=== PATIENT | male | born 1960 | race Caucasian/White ===

== ENCOUNTER 2016-06-30 19:33 | Inpatient (IN) ==
[2016-06-30] MEDS ORDERED: VANCOMYCIN INJ 1,000 MG in SODIUM CHLORIDE 0.9% 250 ML IV STA (20:18)
[2016-06-30] MEDS ORDERED: methylPREDNISolone SOD SUC 125 MG/2 ML VIAL IV STA (20:18)
[2016-06-30] MEDS ORDERED: KETOROLAC 30 MG/1 ML VIAL IV STA (20:18)
--- NOTE | 2016-06-30 20:24 | Emergency Department Note ---
Arrival - Arrival Chief Complaint: Abscess Stated Complaint: abcess on buttocks ED Nursing Triage Note: pt has a perirectal abscess and was told by dr bergman to come to the er for admission to be put on iv antibiotics Mode of Arrival: Ambulatory Limitations: No Limitations Source: Patient Time Seen by Provider: 06/30/16 20:18 - History of Present Illness HPI Narrative: This 56-year-old white male presents approximately 1 week post onset of painful knot of the right buttocks perirectally. During that 1 week, the patient has had the area manipulated twice, once by his and once by an ER physician. However he has had progression of right perirectal pain extending well into the right buttocks. He was seen in [facility] in an ER earlier today where he was told he had a serious abscess that would have to be opened surgically. At that time he had a CT done but no disk was sent with the patient. Currently he is in considerable discomfort and has had periods of chills and fever over the last week although he has been compliant with the clindamycin he was given to treat infection. Currently he appears uncomfortable but in no acute distress. Onset (ago): week(s) (Patient presents 1 week post onset of symptoms) Allergies/Adverse Reactions: Allergies Allergy/AdvReac Type Severity Reaction Status Date / Time No Known Allergies Allergy Unverified 06/30/16 19:43 Home Medications: Home Medications Medication Instructions Recorded Confirmed Type Clindamycin Cap [Cleocin Cap] 300 mg PO Q6HR 06/30/16 06/30/16 History Review of System - Review of System 12 point system: reviewed and no additional remarkable complaints except as stated - Review of System Constitutional: Present: as per HPI Skin: Present: as per HPI Medical,Surgical,& Family Hx - Social History Smoking Status: Unknown if ever smoked Frequency of Alcohol Use: Frequently Type of Drug Use: None Exam Physical Examination: GENERAL: Well developed, well nourished white male in no acute distress. HEENT: Normocephalic. No trauma. Moist mucous membranes. EOMI. PERRLA. ENT NML NECK: Supple. No adenopathy. CARDIAC: Regular. No murmurs. CHEST: Clear to auscultation. No respiratory distress. ABDOMEN: Soft. Nontender. Active bowel sounds. : Red, warm, hard right perirectal area extending into the right buttocks. EXTREMITIES: No trauma. Normal ROM. No pedal edema. SKIN: No diaphoresis. No rash. NEURO: Alert. Neuro intact. No focal deficits. Vital Signs: Vital Signs Temperature 98.0 F 06/30/16 20:17 Pulse Rate 84 06/30/16 22:55 Respiratory Rate 16 06/30/16 22:55 Blood Pressure 94/62 06/30/16 22:55 O2 Sat by Pulse Oximetry 96 06/30/16 22:55 Course - Reevaluation(s) Reevaluation #1: Discussed with patient the need for hospitalization for further evaluation treatment - Consultations Consultation #1: Discussed with Dr. Jensen who will admit for further evaluation treatment. Results - Labs CBC & BMP: 06/30/16 20:33 06/30/16 20:33 Labs: I have reviewed the laboratory and noted the low potassium and calcium. - Diagnostic Findings Procedure: CT Abdomen and Pelvis: image reviewed by me, report reviewed by me ( I have reviewed the CT which confirms evidence of a right perirectal abscess) Disposition Clinical Impression: Right perirectal abscess Case discussed with: patient, patient's family Condition: Guarded Time of Disposition: 23:03
[2016-06-30 20:52] LABS: Basophils % 0.4 % (0.0-0.8); Eosinophils # 0.1 10*3/uL (0.0-0.87); Eosinophils % 1.1 % (0.00-10.9); Hematocrit 36.8 VOL% (42.0-52.0); Hemoglobin 12.8 GM/DL (14.0-18.0); Immature Granulocytes % 0.4 %; Immature Granulocytes Absolute 0.03 #; Lymphocytes # 1.5 10*3/uL (1.4-4.0); Lymphocytes % 18.5 % (21.2-54.2); Mean Corpuscular HGB Conc 34.8 GM/DL (32-36); Mean Corpuscular Hemoglobin 31 PG (27-34); Mean Corpuscular Volume 89.8 FL (87-102); Mean Platelet Volume 9.5 FL (9.6-12.0); Monocytes # 0.4 10*3/uL (0.11-0.8); Monocytes % 5.1 % (1.7-12.7); Neutrophils # 5.8 10*3/uL (1.4-7.4); Neutrophils % 74.5 % (38.7-73.9); Platelet Count 167 T/CUMM (130-400); Red Cell Distribution Width 12.7 % (9.3-17.3); White Blood Count 7.8 T/CUMM (4-12)
[2016-06-30 21:10] LABS: INR 1.1; PT Patient Result 11.3 SECS; Partial Thromboplastin Time 32.4 SECS (0-40)
[2016-06-30 21:19] LABS: Albumin 2.7 G/DL (3.4-5.0); Bilirubin,Total 1.2 MG/DL (0.2-1.0); Calcium 7.7 MG/DL (8.5-10.1); Osmolality,Calculated 275.8 MOS/KG (273-304); Potassium 3.2 MMOL/L (3.5-5.1); Total Protein 5.9 G/DL (6.4-8.3)
[2016-06-30] MEDS ORDERED: SODIUM CHLORIDE 0.9% 100 ML IV ONE (21:54)
[2016-06-30] MEDS ORDERED: methylPREDNISolone SOD SUC 125 MG/2 ML VIAL ONE (21:54)
[2016-06-30] MEDS ORDERED: VANCOMYCIN 1,000 MG VIAL ONE (21:54)
[2016-06-30] MEDS ORDERED: KETOROLAC 30 MG/1 ML VIAL ONE (21:54)
[2016-06-30] MEDS ORDERED: POTASSIUM BICARB EFFERVESCENT 25 MEQ TABLET PO ONE ×2 (22:16→22:20)
--- NOTE | 2016-06-30 22:51 | CT Report ---
History: Perirectal abscess Date: 06/30/2016 Study: CT abdomen and pelvis with IV contrast Comparison exam: No previous CT currently available for comparison Technique: Spiral CT sections were obtained from the lung bases to the pubic symphysis following 50 mL Omnipaque 350 IV. Total DLP measures 1753.3 mGy*cm. The CT exam was performed using one or more of the following dose reduction techniques: Automated exposure control, adjustment of the mA and/or kV according to patient size, or use of iterative reconstruction technique. CT abdomen: The partially visualized lung bases are generally clear. There is no gross pleural or pericardial effusion. There is a 10.3 mm rounded water density area in the lateral segment of the left lobe of the liver superiorly suggesting hepatic cyst. There are some tiny less than 1 cm areas in the right lobe of the liver which could represent cysts as well, but are difficult to characterize because of small size. The spleen, pancreas, adrenal glands, bile ducts, contracted gallbladder, and kidneys are unremarkable in CT appearance otherwise. There is no aortic aneurysm. The appendix is normal. There is no lymphadenopathy by short axis diameter criteria. CT pelvis: There is some focal hazy edema in the subcutaneous fat of the right buttock area dorsally and medially, extending near the right perirectal region. This is suggestive of focal edema such as that which can be seen with phlegmon. This measures approximately 36 x 18 x 42 mm at the minimum. There is no forest well encapsulated abscess. Metallic density suggesting clips from previous vasectomy are noted in the scrotum bilaterally. There is no pelvic lymphadenopathy with short axis diameter criteria. Impression: Localized soft tissue edema in the soft tissues of the right buttock extending into the right perirectal area compatible with phlegmon. A fluid filled/encapsulated abscess is not seen. No significant abnormality otherwise PROCEDURE INTERPRETED AT [facility] DEPARTMENT OF RADIOLOGY Final Report Signed by: Dr. Jaclyn New
[2016-06-30] MEDS ORDERED: HYDROmorphone 2 MG/1 ML VIAL IV PRN (23:05)
[2016-06-30] MEDS ORDERED: ONDANSETRON 4 MG/2 ML VIAL IV PRN (23:05)
[2016-07-01] MEDS: SODIUM CHLORIDE 0.9% 1,000 ML IV SCH ×3 (00:53→14:32)
[2016-07-01] MEDS: PIPERACILLIN/TAZOBACTAM 3,375 MG in SODIUM CHLORIDE 0.9% 100 ML IV SCH ×2 (00:56→09:30)
--- NOTE | 2016-07-01 07:29 | General Surg History&Physical ---
Assessment and Plan (1) Perianal abscess Status: Acute Assessment and plan: This patient will be taken to the operating room for an exam under anesthesia with incision and drainage of his perianal abscess. I discussed the risks, benefits, and alternatives of the operation with the patient, and the expected outcomes have been reviewed. The patient would like to proceed with the operation. In particular, we discussed the risk of incontinence and fistula and the need for further surgery as well as urinary retention Current Visit: Yes History of Present Illness Chief complaint: Buttock pain History of present illness: Mr. Clemons is a 56 year old male with no significant past medical or surgical history who was admitted to the hospital with worsening pain and fever on his right buttock region. He has never had any problems like this before. He denies any medical history. He had a CT scan in the ER and some lab work which was fairly unrevealing. Home Medications Medication Instructions Recorded Confirmed Type Clindamycin Cap [Cleocin Cap] 300 mg PO Q6HR 06/30/16 06/30/16 History Dextroamphetamine/Amphetamine 10 mg PO TID 07/01/16 07/01/16 History [Adderall 10 mg Tablet] Allergies Allergy/AdvReac Type Severity Reaction Status Date / Time No Known Allergies Allergy Unverified 06/30/16 19:43 Medical,Surgical,& Family Hx - Medical History Psychological: History of: ADHD - Surgical History HEENT Surgeries: Surgical HX of: Tonsilectomy & Adenoidectomy (Tonsils) - Family History Family History: Reports;: Family Cancer (mother breasts,oral), Family Hematology (brother and father , protein S and C deficiency), Family Stroke ( father) - Social History Smoking Status: Unknown if ever smoked Frequency of Alcohol Use: Frequently Type of Drug Use: None Exam - Constitutional Vitals: Period Temp Pulse Resp BP Sys/Herrera Pulse Ox Last 24 Hr 98.2 F-98.3 F 63-84 16-20 94-130/62-76 94-97 General appearance: no acute distress, over weight - Head Head exam: Present: normal inspection, normocephalic - Eye Eye exam: Present: EOMI Pupils: Present: MAME - ENT ENT exam: Present: normal exam Mouth exam: Present: normal external inspection, normal voice - Neck Neck exam: Present: normal inspection, trachea midline - Respiratory Respiratory exam: Present: clear to auscultation bilaterally. Absent: accessory muscle use, chest wall tenderness - Cardiovascular Cardiovascular exam: Present: RRR. Absent: systolic murmur, tachycardia - GI/Abdominal GI/Abdominal exam: Present: normal bowel sounds, soft. Absent: tenderness, rebound - Anus/Rectum Anus/Rectum: other (There is a large area of erythema and induration over the right buttock with a small area of drainage.) - Extremities Exam Extremities exam: Present: normal inspection, normal capillary refill - Back Exam Back exam: Present: normal inspection - Neurological Exam Neurological exam: Present: alert, oriented X3 Speech: Present: normal - Skin Skin exam: Present: normal color, warm - Constitutional Constitutional: Present: as per HPI - EENT Nose, mouth and throat: Present: as per HPI - Cardiovascular Cardiovascular: Present: as per HPI - Respiratory Respiratory: Present: as per HPI - Gastrointestinal Gastrointestinal: Present: as per HPI - Genitourinary Genitourinary: Present: as per HPI - Musculoskeletal Musculoskeletal: Present: as per HPI - Neurological Neurological: Present: as per HPI - Endocrine Endocrine: Present: as per HPI Hematologic/Lymphatic: Present: as per HPI Results - Labs CBC & BMP: 06/30/16 20:33 06/30/16 20:33 - Diagnostic Findings Procedure: CT Abdomen and Pelvis: image reviewed by me, report reviewed by me
[2016-07-01 07:37] LABS: Basophils % 0.2 % (0.0-0.8); Hematocrit 39.3 VOL% (42.0-52.0); Hemoglobin 13.5 GM/DL (14.0-18.0); Immature Granulocytes % 0.5 %; Immature Granulocytes Absolute 0.03 #; Lymphocytes # 1.1 10*3/uL (1.4-4.0); Lymphocytes % 18.9 % (21.2-54.2); Mean Corpuscular HGB Conc 34.4 GM/DL (32-36); Mean Corpuscular Hemoglobin 31 PG (27-34); Mean Corpuscular Volume 90.3 FL (87-102); Mean Platelet Volume 9.4 FL (9.6-12.0); Monocytes # 0.1 10*3/uL (0.11-0.8); Monocytes % 1.4 % (1.7-12.7); Neutrophils # 4.5 10*3/uL (1.4-7.4); Platelet Count 161 T/CUMM (130-400); Red Blood Count 4.35 MC/CUMM (3.8-5.5); Red Cell Distribution Width 12.9 % (9.3-17.3); White Blood Count 5.7 T/CUMM (4-12)
[2016-07-01 08:01] LABS: Calcium 8.1 MG/DL (8.5-10.1); Osmolality,Calculated 285.3 MOS/KG (273-304); Potassium 4.2 MMOL/L (3.5-5.1)
[2016-07-01 08:07] LABS: Band Neutrophils 2 % (0-10); Lymphocytes 11 % (20-55); Segmented Neutrophils 85 % (50-85); Total Cells Counted 100
[2016-07-01 08:08] LABS: Hypochromasia Slight; Platelet Estimate Adequate
[2016-07-01] MEDS ORDERED: KETOROLAC 30 MG/1 ML VIAL ONE (12:10)
[2016-07-01] MEDS ORDERED: ONDANSETRON 4 MG/2 ML VIAL ONE ×2 (12:10→13:20)
[2016-07-01] MEDS ORDERED: PROPOFOL 200 MG/20 ML VIAL IV ONE (12:10)
[2016-07-01] MEDS ORDERED: LIDOCAINE 2% 5 ML VIAL ONE (12:10)
--- NOTE | 2016-07-01 12:44 | Operative Note ---
Date of procedure: 07/01/16 Pre-op diagnosis: Perirectal abscess Post-op diagnosis: same Procedure: Preoperative diagnosis Perirectal abscess Postoperative diagnosis Same Procedures performed 1. Rectal exam under anesthesia 2. Incision and drainage of perirectal abscess Findings A large perirectal abscess was present that required a counterincision and Poland drain placement to keep the tract open and allowed to drain adequately. There is no evidence of fistulization to the rectum. Complications None apparent Specimen Cultures Anesthesia General LMA Blood loss 10 mL Indications Recurrent perirectal abscess Description of procedure The patient was taken to the operating room and transferred to the operating table in the supine position. Pressure points were padded and SCDs were placed lower extremities. The patient was placed in lithotomy position and the perineum was prepped with Betadine and draped sterilely. Preoperative antibiotics were administered, and a timeout was performed. Rectal exam under anesthesia revealed no evidence of communication with the rectum. The abscess was drained externally through to counterincisions because the abscess cavity is so large. A large amount of pus was drained and cultures were sent to the lab. The cavity was irrigated and the Andrew drain was placed and sewn to itself with 3-0 nylon suture. The wound is packed with iodoform packing gauze after it was irrigated and dressed with a sterile dressing. Postoperative plan Continue wound care and antibiotics Follow-up cultures Implants: andrew drain Anesthesia: GURPREET Surgeon / Physician: Manny Jensen Estimated blood loss: minimal Specimens: other (cultures) Condition: stable Disposition: PACU Results - Labs CBC & BMP: 07/01/16 07:18 07/01/16 07:18 Discharge Plan - Discharge Medications No Action Clindamycin Cap [Cleocin Cap] 300 mg PO Q6HR Dextroamphetamine/Amphetamine [Adderall 10 mg Tablet] 10 mg PO TID - Follow Up or Referral - Forms/Instructions
--- NOTE | 2016-07-01 13:05 | Anesthesia Post-Op ---
Anesthesia Post OP - Post Ansesthetic Evaluation Patient seen in post op: Yes Resp: within normal limits CV: within normal limits Mental: within normal limits Temp: within normal limits [id number]: within normal limits Nausea and Vomiting: within normal limits Pain: within normal limits
[2016-07-01] MEDS ORDERED: MIDAZOLAM 2 MG/2 ML VIAL ONE (13:07)
[2016-07-01] MEDS ORDERED: fentaNYL 100 MCG/2 ML VIAL ONE (13:07)
[2016-07-01] MEDS ORDERED: SEVOFLURANE 1 UNIT/15 MINUTE INH ONE (13:07)
[2016-07-01] MEDS ORDERED: ACETAMINOPHEN 1,000 MG/100 ML VIAL IV ONE (13:07)
[2016-07-01] MEDS ORDERED: ONDANSETRON 4 MG/2 ML VIAL IV PRN (13:19)
[2016-07-01] MEDS ORDERED: HYDROmorphone 2 MG/1 ML VIAL ONE (13:20)
[2016-07-01] MEDS: HYDROmorphone 2 MG/1 ML VIAL IV PRN ×2 (13:21→13:32)
[2016-07-01] MEDS ORDERED: LACTATED RINGERS 1,000 ML IV SCH (13:30)
[2016-07-01] MEDS: VANCOMYCIN INJ 2,000 MG in SODIUM CHLORIDE 0.9% 500 ML IV SCH ×2 (14:30→21:10)
[2016-07-02] MEDS: PIPERACILLIN/TAZOBACTAM 3,375 MG in SODIUM CHLORIDE 0.9% 100 ML IV SCH ×5 (00:56→16:22)
[2016-07-02] MEDS: SODIUM CHLORIDE 0.9% 1,000 ML IV SCH ×3 (01:02→07:30)
[2016-07-02] MEDS: HYDROmorphone 2 MG/1 ML VIAL IV PRN ×2 (10:01→20:34)
[2016-07-02] MEDS: VANCOMYCIN INJ 2,000 MG in SODIUM CHLORIDE 0.9% 500 ML IV SCH ×2 (13:01→21:00)
--- NOTE | 2016-07-02 13:38 | Event Note ---
General Surgery Progress Note Chief complaint This patient is a 56-year-old man admitted to the hospital with a large right- sided gluteal abscess treated with incision and drainage and Carla drain placement on 07/01/2016 Interval history The patient is doing well. He has some significant pain with dressing changes today. No fevers. Tolerating a diet. Cultures have grown gram-negative rods and gram-positive cocci Physical exam Patient is afebrile with normal vital signs The right buttock wound has some significant induration and erythema that still present and is relatively unchanged compared to yesterday but there is no further purulent drainage expressed when pushing on the wound Labs None new Imaging None new Assessment and plan Continue antibiotics and wound care Follow cultures Repeat labs tomorrow and keep 1 more day for pain control and wound care.
[2016-07-03] MEDS: PIPERACILLIN/TAZOBACTAM 3,375 MG in SODIUM CHLORIDE 0.9% 100 ML IV SCH ×2 (00:58→07:54)
[2016-07-03 02:07] LABS: Basophils # 0.1 10*3/uL (0.0-0.2); Eosinophils % 0.8 % (0.00-10.9); Hematocrit 35.6 VOL% (42.0-52.0); Hemoglobin 11.9 GM/DL (14.0-18.0); Immature Granulocytes % 0.4 %; Immature Granulocytes Absolute 0.02 #; Lymphocytes # 1.9 10*3/uL (1.4-4.0); Lymphocytes % 37.3 % (21.2-54.2); Mean Corpuscular HGB Conc 33.4 GM/DL (32-36); Mean Corpuscular Hemoglobin 31 PG (27-34); Mean Platelet Volume 9.6 FL (9.6-12.0); Monocytes # 0.4 10*3/uL (0.11-0.8); Monocytes % 7.7 % (1.7-12.7); Neutrophils # 2.7 10*3/uL (1.4-7.4); Neutrophils % 52.8 % (38.7-73.9); Platelet Count 171 T/CUMM (130-400); Red Blood Count 3.87 MC/CUMM (3.8-5.5); Red Cell Distribution Width 13.2 % (9.3-17.3); White Blood Count 5.1 T/CUMM (4-12)
[2016-07-03 02:33] LABS: Calcium 7.6 MG/DL (8.5-10.1); Magnesium 2.2 MG/DL (1.8-2.4); Potassium 4.2 MMOL/L (3.5-5.1)
[2016-07-03] MEDS: HYDROmorphone 2 MG/1 ML VIAL IV PRN (05:18)
--- NOTE | 2016-07-03 11:17 | Discharge Summary ---
Hospital Course - Hospital Course Hospital Course: Patient was admitted for perirectal abscess for which she underwent irrigation debridement in the operating room. Cultures at the time of discharge were growing gram-negative rods and gram-positive cocci with final results pending. Patient tolerated bedside dressing changes without difficulty and requiring only oral pain medications. He reports having a family member who can assist him with these dressing changes. He was discharged home in good condition on ciprofloxacin and Bactrim. We will follow-up on the cultures. No complications to note. Diagnosis - Discharge Diagnosis (1) Perianal abscess Status: Acute Specialty Discharge - Follow Up or Referrals Follow up with: Manny Jensen MD [Physician] - 07/10/16 1:30 pm Discharge Plan - Discharge Data Disposition: Disch To Home/Self Care Condition at Discharge: Stable Discharge Diet: advance to your usual diet, high fiber diet Activity: resume usual activities as tolerated Hygiene: may shower, other (Sitz baths after bowel movement) Driving: other (No driving while taking narcotics) Contact your physician if you experience:: fever over 101, Difficulty voiding, Redness or swelling, Nausea/Vomiting, Shortness of breath, Bleeding, pain uncontrolled by pain medications Wound / Dressing Care Instructions: Change packing daily after showering. - Discharge Medications New Ciprofloxacin Tab [Cipro Tab] 500 mg PO BID #14 tablet HYDROcodone/ACETAMIN 7.5-325 [Ebony 7.5-325] 1 tablet PO Q6H PRN #30 tablet PRN Reason: Pain Moderate To Severe (4-10) Sulfameth/Trimeth 800-160 Tab [Bactrim DS Tab] 1 tablet PO BID #14 tablet Continue Dextroamphetamine/Amphetamine [Adderall 10 mg Tablet] 10 mg PO TID Discontinued Clindamycin Cap [Cleocin Cap] 300 mg PO Q6HR - Follow Up or Referral Follow Up: Manny Jensen MD [Physician] - 07/10/16 1:30 pm - Forms/Instructions Instructions: Abscess (GEN), Incision and Drainage (DC), Sitz Bath (DC) Exam - Constitutional Vitals: Period Temp Pulse Resp BP Sys/Herrera Pulse Ox Last 24 Hr 97.5 F-98.9 F 67-80 16-20 111-121/59-77 93-98 General appearance: no acute distress - Respiratory Respiratory exam: Present: clear to auscultation bilaterally - GI/Abdominal GI/Abdominal exam: Present: normal bowel sounds, soft. Absent: tenderness - Extremities Exam Extremities exam: Absent: calf tenderness, edema - Neurological Exam Neurological exam: Present: alert, oriented X3 Discharge Results Procedures and tests throughout hospitalization: Pending Orders 07/01/16 Abscess Culture Routine Anaerobic Culture Routine Perianal abscess I&D Cultures growing G (+) cocci and G(-) rods Labs on day of discharge: Labs from last 24 hours 07/03/16 07/03/16 07/02/16 01:29 01:29 19:56 WBC 5.1 RBC 3.87 Hgb 11.9 L Hct 35.6 L MCV 92.0 MCH 31 MCHC 33.4 RDW 13.2 Plt Count 171 MPV 9.6 Neut % (Auto) 52.8 Lymph % (Auto) 37.3 Snyder % (Auto) 7.7 Eos % (Auto) 0.8 Baso % (Auto) 1.0 H Neut # (Auto) 2.7 Lymph # (Auto) 1.9 Snyder # (Auto) 0.4 Eos # (Auto) 0.0 Baso # (Auto) 0.1 Immature Gran % 0.4 Nucleated RBC % 0.0 Immature Gran # 0.02 Nucleated RBCs # 0.00 Sodium 143 Potassium 4.2 Chloride 108 H Carbon Dioxide 29 Anion Gap 10.2 BUN 8 Creatinine 0.80 GFR Calculation 126 BUN/Creatinine Ratio 10.00 Glucose 91 Calculated Osmolality 282.0 Calcium 7.6 L Magnesium 2.2 Vancomycin Trough 19.3 Preliminary micro results at discharge 07/01/16 Unknown Abscess Culture - Preliminary Buttock - Right Gram Negative Rods Gram Positive Cocci - Imaging and Cardiology Procedure: CT Abdomen and Pelvis: image reviewed by me, report reviewed by me DS: Provider Date of admission: 06/30/16 23:04 Primary care physician: . No PCP Attending physician on admission: Manny Jensen MD Consults: 07/01/16 07:09 Consult to Anesthesiology [CONS] Routine Consulting Provider: Reason for Anesthesiology: Pre-op Clearance 07/03/16 10:17 Consult to Pharmacy [CONS] Routine Reason for Pharmacy Consult: Dose/Manage Vancomycin Discharging clinician: Shawna Woods PA-C
[2016-07-03 11:48] VITALS: BP 132/78
[2016-07-03] MEDS: VANCOMYCIN INJ 2,000 MG in SODIUM CHLORIDE 0.9% 500 ML IV SCH (12:55)
[2016-07-03] MEDS ORDERED: VANCOMYCIN INJ 1,500 MG in SODIUM CHLORIDE 0.9% 500 ML IV SCH (13:00)
== END 2016-07-03 12:33 | disposition home or self-care (01) | DRG 349 ==
LOC: N.ED 19:33 → N.EDINP 23:04 → N.3E 23:30
PROVIDERS: ADMIT Surgery; ATTEND Surgery